=== PATIENT | male | born 1950 | race Hispanic/Latino ===

== ENCOUNTER → 2025-07-10 | Day surgery (SDC) | payer MEDICARE ==
[2025-07-09 12:04] LABS: BASOPHILS % 0.7 % (0.0-1.0); EOSINOPHILS % 6.5 % (0.0-6.0); LYMPHOCYTES % 34.7 % (18.0-39.1); MONOCYTES % 9.9 % (4.4-11.3); NEUTROPHILS % 48.1 % (38.7-80.0); RED CELL DISTRIBUTION WIDTH 12.3 % (11.7-14.4)
[2025-07-09 12:31] LABS: EST GLOMERULAR FILTRATION RATE 90.0 ML/MIN (>=60)
[~2025-07-10] MED LIST: AMLODIPINE BESYL5 MG PO; ATORVASTATIN CA20 MG PO; CO Q10200 MG PO; FENTANYL CITRATE/PF 100MCG/2 ML INJ ONE; FERROUS GLUCONATE PO; GENTAMICIN 80MG/NS 100 ML 200 ML IV ONE; GLYCOPYRROLATE INJ 0.2 MG/ML VIAL ONE; LIDOCAINE HCL 2% LOCAL INJ 5 ML SDV VIAL INJ ONE; MIDAZOLAM HCL 2 MG/2 ML VIAL ONE; MONTELUKAST SOD10 MG PO; ONDANSETRON HCL INJ 2MG/ML 2ML 2 MG/ML VIAL ONE; PIPERACILLIN/TAZOBACTAM 3.375 GM VIAL ONE; PROPOFOL IV EMULSION 10 MG/ML 20 ML VIAL ONE; SEVOFLURANE INHAL SOLN 250 ML PEN BTL ONE; SODIUM CHLORIDE 0.9% 1000ML 1,000 ML ONE; VALSARTAN-HCTZ1 EAC3 PO
[2025-07-10] MEDS: FENTANYL CITRATE/PF 100MCG/2 ML INJ ONE (13:37)
[2025-07-10] MEDS: MEPERIDINE HCL INJ 25 MG/ML VIAL ONE (13:43)
[2025-07-10] MEDS: PHENAZOPYRIDINE HCL 100 MG TAB ONE (13:51)
[2025-07-10 15:05] VITALS: BP 159/89; PULSE 78; RESP 16; O2SAT 96
== END | disposition home or self-care (01) ==
LOC: OR 09:41
PROVIDERS: ATTEND Urology
DX: R97.20 Elevated prostate specific antigen [PSA] (principal); C61 Malignant neoplasm of prostate; C67.8 Malignant neoplasm of overlapping sites of bladder; N35.812 Other bulbous urethral stricture, male; N43.3 Hydrocele, unspecified; D64.9 Anemia, unspecified; I10 Essential (primary) hypertension; E66.01 Morbid (severe) obesity due to excess calories; J45.909 Unspecified asthma, uncomplicated; Z01.810 Encounter for preprocedural cardiovascular examination; Z01.812 Encounter for preprocedural laboratory examination; Z01.818 Encounter for other preprocedural examination; Z79.899 Other long term (current) drug therapy
CPT/HCPCS: 36415; 52240; 55700; 71046; 74420; 76872; 80048; 85025; 88305; 88307; 93005; C1758; J1580; J2003; J2175; J2250; J2405; J2543; J2704; J3010; J7030; 76998; 88304